=== PATIENT | female | born 1955 | race Caucasian/White ===

== ENCOUNTER 2019-06-12 11:24 | Outpatient (CLI) | payer BC, SELFPAY ==
--- NOTE | 2019-06-12 11:41 | XR_ITS ---
WS: [id number] LATERAL LUMBAR SPINE: 3 view. Lateral radiographs are performed in upright neutral, flexion and extension to the patient's toleranc e. HISTORY: Spondylolisthesis LUMBAR SPINE COMPARISON: None available. Mild rotoscoliosis of the lumbar spine. Taking into consideration the amount of rotation no instabili ty is demonstrated. There is very slight anterolisthesis of L4 but no instability. Mild disc througho ut the lumbar spine. Moderate facet joint arthritis from L3 to S1. XR/XR lumbar spine f/e only [id number] IMPRESSION: No lumbar spine instability. Advanced degenerative facet disease and disc disease throughout the lumbar spin e.
== END 2019-06-12 11:25 | disposition home or self-care (01) ==
LOC: RADWPI 11:31
PROVIDERS: Family Provider Family Medicine; PCP Family Medicine; Visit Provider Nurse Practitioner
DX: M43.16 Spondylolisthesis, lumbar region (principal); M51.36 Other intervertebral disc degeneration, lumbar region
CPT/HCPCS: 72120

== ENCOUNTER → 2020-06-30 09:00 | Outpatient (BNVA) | payer BC, MEDICARE, SELFPAY | PROVIDERS: Family Provider Family Medicine; PCP Family Medicine; Visit Provider Internal Medicine Rheumatology | DX: M15.9 Polyosteoarthritis, unspecified (principal); Z79.899 Other long term (current) drug therapy; R53.83 Other fatigue; Z94.84 Stem cells transplant status | CPT/HCPCS: 99204 ==

== ENCOUNTER 2020-06-30 12:29 | Outpatient (CLI) | payer MEDICARE, BC, SELFPAY ==
--- NOTE | 2020-06-30 12:39 | XR_ITS ---
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 There are advanced degenerative changes in the IP joints with defor mity of the second through the fifth fingers. Minimal degenerative change in the MP joints. Moderate degenerative change at the CMC joint of the thumb. No soft tissue foreign bodies. XR/XR hand RT min 3V* [id number] IMPRESSION: 1. Moderately severe degenerative changes of the hand as noted above. 2. No fracture noted
--- NOTE | 2020-06-30 12:39 | XR_ITS ---
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 Marked degenerative change at the first MP joint with large margina l osteophytes at the base of the proximal phalanx of the great toe. Txob-iz-eaqlpxiv degenerative michelle nges in the midfoot joints. Small plantar heel spur. XR/XR foot LT min 3V* [id number] IMPRESSION: 1. Degenerative changes as noted above. 2. No fracture or dislocation.
--- NOTE | 2020-06-30 12:39 | XR_ITS ---
WS: [id number] Exam: XR foot RT min 3V* [id number] Date/Time of Exam: 06/30/2020 12:41 PM Reason For Exam: Z79.899 - Other emt intermediate (current) drug therapy No fracture or dislocation. Advanced DJD at the first MP joint. Mild DJD in the midfoot joints. No so ft tissue foreign bodies. Plantar heel spur. XR/XR foot RT min 3V* [id number] IMPRESSION: 1. No fracture or dislocation. 2. Degenerative changes as noted above.
--- NOTE | 2020-06-30 12:39 | XR_ITS ---
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 Moderately advanced degenerative changes involving the IP joints an d MP joints of the thumb. Marked degenerative change at the CMC joint of the thumb. Deformity and fus iform soft tissue swelling the third finger. No soft tissue foreign bodies are seen. XR/XR hand LT min 3V* [id number] IMPRESSION: 1. Moderately advanced degenerative changes as noted above. 2. No fracture or dislocation.
[2020-06-30 13:47] LABS: C Reactive Protein 0.4 mg/L (0.0-4.9)
[2020-06-30 14:38] LABS: Erythrocyte Sedimentation Rate 17 mm/hr (0-15)
[2020-06-30 15:15] LABS: Free T4 Free Thyroxine 1.18 ng/dL (0.82-1.77)
[2020-07-01 14:48] LABS: Cyclic Citrullinated Peptide <16 UNITS
== END 2020-06-30 12:30 | disposition home or self-care (01) ==
PROVIDERS: PCP Family Medicine; Visit Provider Internal Medicine Rheumatology
DX: M19.90 Unspecified osteoarthritis, unspecified site (principal); Z79.899 Other long term (current) drug therapy
CPT/HCPCS: 36415; 73130; 73630; 84439; 85651; 86140; 86431

== ENCOUNTER → 2020-07-29 14:33 | Outpatient (BNVA) | payer BC, MEDICARE, SELFPAY | PROVIDERS: PCP Family Medicine; Visit Provider Internal Medicine Rheumatology | DX: M19.041 Primary osteoarthritis, right hand (principal); M19.042 Primary osteoarthritis, left hand; Z94.84 Stem cells transplant status; R53.83 Other fatigue | CPT/HCPCS: 99214 ==

== ENCOUNTER 2021-03-17 09:02 | Outpatient (CLI) | payer MEDICARE, BC, SELFPAY ==
--- NOTE | 2021-03-17 09:16 | MM_ITS ---
WS: [id number] BILATERAL SCREENING DIGITAL MAMMOGRAM WITH CAD HISTORY: SCREENING COMPARISON: 03/01/2018, 09/10/2015, 08/16/2012 Bilateral CC and MLO views submitted. Computer aided detection analyzed. Breast composition: There are scattered areas of fibroglandular density. No suspicious masses, microc alcifications or architectural distortion. Very mild asymmetry posterior to the LEFT nipple has been present on prior studies. MM/[place] [id number] IMPRESSION: BI-RADS: 2-Benign FOLLOW UP: 1 Year Follow-up
== END 2021-03-17 09:03 | disposition home or self-care (01) ==
PROVIDERS: PCP Family Medicine; Visit Provider Family Medicine
DX: Z12.31 Encounter for screening mammogram for malignant neoplasm of breast (principal)
CPT/HCPCS: 77067

== ENCOUNTER 2021-07-24 09:05 | Outpatient (CLI) | payer MEDICARE, BC, SELFPAY ==
--- NOTE | 2021-07-24 09:32 | MR_ITS ---
WS: [id number] MRI LUMBAR SPINE NONCONTRAST HISTORY: Chronic low back pain down RIGHT leg. COMPARISON: 06/14/2018 TECHNIQUE: Sagittal and axial multisequence imaging is submitted. Mild RIGHT curvature lumbar spine when increase in the thoracic kyphosis. Postsurgical hardware in th e cervical spine. Mild disc space narrowing and desiccation throughout the lumbar spine. Small amount of marrow edema i n the adjacent endplates of L4-5 and S1. No fracture. L3 and L4 anterolisthesis by 3 mm. Conus terminates normally at L1. Mild foraminal narrowing on the RIGHT at T11-12 due to osteophyte and facet disease. L1-L2: Moderate annular disc bulge and osteophytic ridging. Marked ligamentum flavum hypertrophy, LEF T greater than RIGHT encroaching into the thecal sac. Mild central with mvej-ul-chkigcaz subarticular and foraminal stenosis. Mild progression since the prior study. L2-L3: Moderate osteophytic ridging and annular disc bulging with ligamentum flavum and facet arthrit is. Mild central and foraminal stenosis. Moderate LEFT subarticular recess stenosis and mild on the R IGHT. Findings have progressed since the prior study. Asymmetric facet joint arthritis, LEFT greater than RIGHT. L3-L4: Moderate diffuse annular disc bulging and osteophytic ridging. Marked ligamentum flavum hypert rophy and facet arthritis encroaching into the thecal sac and subarticular recesses. Moderate central and bilateral subarticular recess stenosis and mild foraminal stenosis. L4-L5: Marked annular disc bulging and osteophytic ridging. Marked ligamentum flavum arthritis and fa cet arthritis. Moderate central, bilateral subarticular recess and foraminal stenosis. Stenosis due t o combination of facet disease, osteophytes and disc disease. Progression since the prior study. L5-S1: Diffuse asymmetric disc bulging greatest to the RIGHT. RIGHT foraminal and RIGHT paracentral d isc protrusions. There is a small disc abutting the traversing RIGHT S1 nerve root. This is a new dis c protrusion. Previously described central disc protrusion is smaller. Moderate bilateral foraminal s tenosis. Marked ligamentum flavum and facet arthritis. Paravertebral soft tissues are normal MR/MR lumbar spine wo con* [id number] IMPRESSION: 1. Multilevel moderate facet joint arthritis and areas of stenosis with progre ssion since 06/14/2018. 2. Mild central with mild to moderate subarticular and foraminal stenosis at L 1-2. 3. Moderate LEFT subarticular recess stenosis at L2-3. Mild central and forami nal stenosis and RIGHT subarticular recess stenosis at L2-3. 4. Mild central and bilateral subarticular recess and mild foraminal stenosis at L3-4. 5. Moderate central, bilateral subarticular recess and foraminal stenosis at L 4-5. 6. Small RIGHT foraminal and RIGHT paracentral disc protrusions at L5-S1. Disc protrusion does abut the RIGHT S1 nerve root. 7. Moderate bilateral foraminal stenosis at L5-S1.
== END 2021-07-24 09:06 | disposition home or self-care (01) ==
LOC: RAD 09:07
PROVIDERS: PCP Family Medicine; Visit Provider Family Medicine
DX: M48.07 Spinal stenosis, lumbosacral region (principal); M54.9 Dorsalgia, unspecified; M79.661 Pain in right lower leg
CPT/HCPCS: 72148

== ENCOUNTER → 2021-07-29 16:35 | Outpatient (BNVA) | payer MEDICARE, BC, SELFPAY | PROVIDERS: PCP Family Medicine; Visit Provider Nurse Practitioner Family | DX: R07.9 Chest pain, unspecified (principal); R11.0 Nausea | CPT/HCPCS: 80053; 84484 ==

== ENCOUNTER → 2021-08-03 13:59 | Outpatient (BNVA) | payer MEDICARE, BC, SELFPAY | PROVIDERS: PCP Family Medicine; Visit Provider Orthopaedic Surgery | DX: M54.50 Low back pain, unspecified (principal) | CPT/HCPCS: 72110; 99204 ==

== ENCOUNTER 2021-08-19 07:22 | Outpatient (RCR) | payer MEDICARE, BC, SELFPAY | END 2021-09-05 23:59 | disposition home or self-care (01) | LOC: SPT 07:22 | PROVIDERS: PCP Family Medicine; Referring Provider Orthopaedic Surgery; Visit Provider Orthopaedic Surgery | DX: M54.50 Low back pain, unspecified (principal) | CPT/HCPCS: 97110; 97161 ==

== ENCOUNTER → 2021-08-30 09:12 | Outpatient (BNVA) | payer MEDICARE, BC, SELFPAY | PROVIDERS: PCP Family Medicine; Visit Provider Anesthesiology Pain Medicine | DX: M51.16 Intervertebral disc disorders with radiculopathy, lumbar region (principal); M47.816 Spondylosis without myelopathy or radiculopathy, lumbar region; M15.9 Polyosteoarthritis, unspecified | CPT/HCPCS: 99205 ==

== ENCOUNTER 2021-09-06 06:00 | Outpatient (RCR) | payer MEDICARE, BC, SELFPAY | END 2021-09-21 13:45 | disposition home or self-care (01) | LOC: SPT 06:00 | PROVIDERS: PCP Family Medicine; Referring Provider Orthopaedic Surgery; Visit Provider Orthopaedic Surgery | DX: M54.9 Dorsalgia, unspecified (principal) | CPT/HCPCS: 97110 ==

== ENCOUNTER → 2021-09-27 13:36 | Outpatient (BNVA) | payer MEDICARE, BC, SELFPAY | PROVIDERS: PCP Family Medicine; Visit Provider Anesthesiology Pain Medicine | DX: M54.16 Radiculopathy, lumbar region (principal) | CPT/HCPCS: 64483; 64484; J1100; J3490 ==

== ENCOUNTER → 2021-09-28 14:15 | Outpatient (BNVA) | payer MEDICARE, BC, SELFPAY | PROVIDERS: PCP Family Medicine; Visit Provider Internal Medicine | DX: R07.9 Chest pain, unspecified (principal); I10 Essential (primary) hypertension; E78.00 Pure hypercholesterolemia, unspecified | CPT/HCPCS: 99204 ==

== ENCOUNTER 2021-10-29 12:52 | Outpatient (CLI) | payer MEDICARE, BC, SELFPAY ==
--- NOTE | 2021-10-29 13:00 | USCV_ITS ---
Andre Morena Age: 66 Gender: F : 1955 Exam Date: 10/29/2021 13:05 Ordering Phys: Tim Shahid M.D ([email or web address]) Technologist: Joleen Pereira [place] [facility] [place]: dyspnea BP: 165 / 93 HR: 86 Rhythm: Sinus Technical Quality: Adequate MEASUREMENTS (Male / Female) Normal Values 2D ECHO LV Diastolic Diameter PLAX 3.7 cm 4.2 - 5.9 / 3.9 - 5.3 cm LV Systolic Diameter PLAX 2.9 cm IVS Diastolic Thickness 1.6 cm 0.6 - 1.0 / 0.6 - 0.9 cm IVS Systolic Thickness 1.5 cm LVPW Diastolic Thickness 1.1 cm 0.6 - 1.0 / 0.6 - 0.9 cm LVPW Systolic Thickness 1.4 cm LVOT Diameter 2.0 cm LV Ejection Fraction 2D Teich 46.5 % LV Ejection Fraction MOD 2C 70.1 % LV Ejection Fraction 2C AL 71.0 % LA Diameter 2.1 cm LA Width 2.9 cm LA Height 3.6 cm RA Width 2.8 cm RA Height 4.9 cm Aorta at Sinotubular Diameter 3.1 cm IVC Diameter 1.7 cm M-MODE MV E Point Septal Separation 0.3 cm DOPPLER AV Peak Velocity 104.0 cm/s LVOT Peak Velocity 82.0 cm/s AV Area Cont Eq vti 2.8 cm squared AV Area Cont Eq pk 2.5 cm squared MV Peak Velocity 83.0 cm/s MV Area PHT 5.1 cm squared Mitral E to A Ratio 0.8 MV E' Velocity 34.0 cm/s Mitral E to MV E' Ratio 7.7 Mitral E to LV E' Lateral Ratio 7.1 Mitral E to LV E' Septal Ratio 8.3 TR Peak Velocity 112.7 cm/s TR Peak Gradient 5.1 mmHg Right Atrial Pressure 3.0 mmHg Pulmonary Artery Systolic Pressu 8.1 mmHg PV Peak Velocity 90.0 cm/s RV Acceleration Time 0.1 s RV Ejection Time 0.2 s RV AcT/ET 0.6 FINDINGS Left Ventricle Left ventricle is normal in size. LV systolic function is normal with EF of 55 to 60%. No regional wall motion abnormalities are seen. Grade 1 diastolic dysfunction is seen. Right Ventricle The right ventricle is normal in size and function. Right Atrium Normal in size Left Atrium Normal in size Mitral Valve Structurally normal mitral valve without significant stenosis or prolapse. There is trace mitral regurgitation. Aortic Valve Structurally normal aortic valve without significant sclerosis or stenosis. There is no aortic regurgitation. Tricuspid Valve Structurally normal tricuspid valve without significant stenosis. Trace tricuspid regurgitation. Insufficient TR jet to calculate RVSP Pulmonic Valve Not well-visualized Pericardium Normal pericardium without effusion. Aorta Normal ascending aorta dimension. IVC The inferior vena cava appears normal. CONCLUSIONS LV systolic function is normal with EF of 55 to 60%. Grade 1 diastolic dysfunction Trace mitral regurgitation Trace tricuspid regurgitation No comparison studies are available Tim Shahid MD (Electronically Signed) Final Date: 10 November 2021 13:01 S
== END 2021-10-29 12:53 | disposition home or self-care (01) ==
LOC: RAD 12:53
PROVIDERS: PCP Family Medicine; Visit Provider Internal Medicine
DX: I08.1 Rheumatic disorders of both mitral and tricuspid valves (principal); R06.00 Dyspnea, unspecified
CPT/HCPCS: 93306

== ENCOUNTER 2021-11-16 06:54 | Outpatient (CLI) | payer MEDICARE, BC, SELFPAY ==
--- NOTE | 2021-11-16 | ECG_ITS ---
[facility] Test Date: 2021-11-16 Pat Name: Morena Powell Department: Room: Gender: Female Placement Interviewer: : 1955 Requested By: Tim Shahid Order Number: [id number] Johnna MD: Tim Shahid M.D. Interpretive Statements NAME OF STUDY: EXERCISE SESTAMIBI STRESS TEST INDICATION: [Chest Pain] EXERCISE DATA: The patient was exercised by Neto protocol. Baseline heart rate was 82 beats per minute. Baseline blood pressure was 138/83 millimeters of mercury. Target heart rate was 133 beats per minute. Maximum heart rate achieved was 137, which was 103% of the target heart rate. Maximum blood pressure was 177/76 millimeters of mercury. Total exercise time was 8 minutes and 30 seconds. Maximum METs achieved was 10.2. The reason for ending the test was completion of the protocol. The patient complained of shortness of breath during the stress test, which then resolved at the end of the test. ELECTROCARDIOGRAM: BASELINE: Showed sinus rhythm, normal axis, no significant ST-T changes at the baseline noted. [] EXERCISE: At the peak exercise level, [] No significant ST-T changes suggestive of ischemia noted. [] RECOVERY: During the recovery period, heart rate dropped appropriately. No significant ST-T changes in the recovery suggestive of ischemia noted. [] CONCLUSION: 1. Exercise capacity good. 2. Heart rate response was appropriate. 3. Blood pressure response was appropriate. 4. Symptoms not suggestive of ischemia. 5. Electrocardiogram portion of the stress test was not suggestive of ischemia. 6. Nuclear scan will be documented separately. Electronically Signed On 11-17-2021 10:32:22 CDT by Tim Shahid M.D. [id number]
[2021-11-16 07:03] VITALS: BMI 27.8
--- NOTE | 2021-11-16 07:04 | NMCV_ITS ---
NM thao perf SPECT r/s* [id number] Morena Powell Age: 66 Gender: F : 1955 Exam Date: 11/16/2021 08:09 Ordering Phys: Tim Shahid M.D ([email or web address]) Technologist: MILA Villalobos Exam Location: [facility] Indications: CHEST PAIN STRESS TEST Please see separate stress test report in [facility] for full findings IMAGE PROTOCOL Rest/Stress 1 Exercise Day Radiopharmaceutical Dose (mCi) Administration Site Administered by Rest: Tc-99m 10.9 IV MILA Varner Sestamibi Stress:Tc-99m 32.8 IV MILA Varner Sestamiphan Rest: 16-Nov-2021 60 Discovery 630 Stress: 16-Nov-2021 30 Discovery 630 Radiopharmaceutical was injected at 85 % maximum heart rate. Images obtained in supine and prone position. SPECT RESULTS Technical Quality: Excellent Raw Data Analysis: Normal Image Corrections: No attenuation or motion correction applied Summed Stress Score: 0 Summed Rest Score: 0 Summed Difference Score: 0 PERFUSION FINDINGS SPECT images demonstrate homogeneous tracer distribution throughout the myocardium. FUNCTIONAL RESULTS (calculated via Gated SPECT) Stress Image LV EF (%): 69 Stress EDV (mL):62 TID: 0.84 Stress ESV (mL):19 FUNCTIONAL FINDINGS: There is normal left ventricular systolic function. IMPRESSIONS 1. Normal myocardial perfusion imaging with no evidence of ischemia 2. LV systolic function is normal Tim Shahid MD (Electronically Signed) Final Date: 16 November 2021 16:53 S
[2021-11-16 09:06] VITALS: BP 133/75; PULSE 83
== END 2021-11-16 06:55 | disposition home or self-care (01) ==
LOC: CDL 06:57
PROVIDERS: PCP Family Medicine; Visit Provider Internal Medicine
DX: R07.9 Chest pain, unspecified (principal)
CPT/HCPCS: 78452; 93017; A9500

== ENCOUNTER → 2021-12-28 12:42 | Outpatient (BNVA) | payer MEDICARE, BC, SELFPAY | PROVIDERS: PCP Family Medicine; Visit Provider Internal Medicine | DX: I11.9 Hypertensive heart disease without heart failure (principal); E78.00 Pure hypercholesterolemia, unspecified | CPT/HCPCS: 99213 ==

== ENCOUNTER → 2022-03-31 10:08 | Outpatient (BNVA) | payer MEDICARE, OTHER, SELFPAY | PROVIDERS: PCP Family Medicine; Visit Provider Family Medicine | DX: I10 Essential (primary) hypertension (principal) | CPT/HCPCS: 80048 ==

== ENCOUNTER 2022-04-28 14:54 | Outpatient (CLI) | payer MEDICARE, OTHER, SELFPAY ==
--- NOTE | 2022-04-28 15:14 | MM_ITS ---
WS: [id number] SCREENING DIGITAL TOMOSYNTHESIS MAMMOGRAM WITH CAD HISTORY: SCREEN COMPARISON: 03/17/2021, 03/01/2018 Bilateral CC and MLO with tomosynthesis views submitted. Synthetic mammography reviewed. Computer aid ed detection analyzed. Breast composition: There are scattered areas of fibroglandular density. No suspicious masses, microc alcifications or architectural distortion. MM/[place] [id number] IMPRESSION: BI-RADS: 1-Negative FOLLOW UP: 1 Year Follow-up
== END 2022-04-28 14:55 | disposition home or self-care (01) ==
LOC: RAD 14:56
PROVIDERS: PCP Family Medicine; Visit Provider Family Medicine
DX: Z12.31 Encounter for screening mammogram for malignant neoplasm of breast (principal)
CPT/HCPCS: 77063; 77067

== ENCOUNTER 2022-08-25 12:01 | Outpatient (CLI) | payer MEDICARE, OTHER, SELFPAY ==
[2022-08-25 13:13] LABS: INR 0.98 (0.8-1.2)
[2022-08-25 13:15] LABS: Fibrinogen 296 mg/dL (174-498)
[2022-08-25 13:21] LABS: Homocysteine 10.68
[2022-08-26 19:25] LABS: PTT-LA-Screen 33 sec (< OR = 40)
[2022-08-28 05:45] LABS: CARDIOLIPIN AB (IGA) <2.0 APL-U/mL; CARDIOLIPIN AB (IGG) <2.0 GPL-U/mL; CARDIOLIPIN AB (IGM) <2.0 MPL-U/mL
[2022-08-29 22:35] LABS: Factor 5 Leiden Mutation NEGATIVE
[2022-08-29 23:35] LABS: PROTEIN S, ACTIVITY 84 % normal (60-140)
[2022-08-30 06:20] LABS: PROTEIN C, ACTIVITY 149 % normal (70-180)
[2022-08-30 06:28] LABS: Antithrombin III Activity 120 % normal (80-135)
[2022-08-30 21:19] LABS: Factor VIII Activity Clotting 128 % normal (50-180)
== END 2022-08-25 12:02 | disposition home or self-care (01) ==
LOC: LAB 12:06
PROVIDERS: PCP Family Medicine; Visit Provider Thoracic Surgery (Cardiothoracic Vascular Surgery)
DX: Z01.812 Encounter for preprocedural laboratory examination (principal); Z01.89 Encounter for other specified special examinations
CPT/HCPCS: 36415; 81240; 81241; 83090; 84311; 85240; 85300; 85303; 85306; 85307; 85384; 85420; 85610; 85613; 85730; 86147

== ENCOUNTER → 2022-11-29 12:25 | Outpatient (BNVA) | payer MEDICARE, OTHER, SELFPAY | PROVIDERS: PCP Family Medicine; Visit Provider Clinical Nurse Specialist Adult Health | DX: R39.15 Urgency of urination (principal); B02.9 Zoster without complications | CPT/HCPCS: 81000 ==

== ENCOUNTER → 2023-02-28 08:16 | Outpatient (BNVA) | payer MEDICARE, SELFPAY | PROVIDERS: PCP Family Medicine; Visit Provider Family Medicine | DX: Z13.6 Encounter for screening for cardiovascular disorders (principal); K21.9 Gastro-esophageal reflux disease without esophagitis; R10.13 Epigastric pain; R63.1 Polydipsia | CPT/HCPCS: 80053; 80061; 83036; 85025 ==

== ENCOUNTER 2023-03-08 06:35 | Outpatient (CLI) | payer MEDICARE, SELFPAY | END 2023-03-08 06:36 | LOC: RAD 05-29 11:49 | PROVIDERS: PCP Family Medicine; Visit Provider Family Medicine | DX: K21.9 Gastro-esophageal reflux disease without esophagitis (principal); K82.4 Cholesterolosis of gallbladder; K76.89 Other specified diseases of liver; R63.1 Polydipsia; R10.13 Epigastric pain | CPT/HCPCS: 76705 ==

== ENCOUNTER 2023-03-08 06:35 | Outpatient (CLI) | payer MEDICARE, SELFPAY ==
--- NOTE | 2023-03-08 06:45 | US_ITS ---
WS: [id number] RIGHT UPPER QUADRANT ULTRASOUND HISTORY: K21.9 - Gastro-esophageal reflux disease without esophagitis COMPARISON: None available. Liver: 15.5 cm in length. Normal size liver. Hepatic cyst RIGHT lobe 1.6 x 1.7 x 1.5 cm. No solid mas s. No bile duct dilatation. Portal Vein: Normal hepatopetal flow with monophasic waveform. Gallbladder: Nonshadowing nonmobile focus within the gallbladder measures 6 x 6 x 7 mm consistent wit h a small polyp. No increased vascularity. CBD: 0.4 cm Pancreas: Normal size and echogenicity. Right kidney: 10.5 cm in length. Normal size and echogenicity. No hydronephrosis or mass. Aorta and IVC: Unremarkable abdominal aorta and IVC. No ascites. IMPRESSION: 1. No cholelithiasis. 2. Hyperplastic gallbladder polyp, 6 x 6 x 7 mm. 3. Hepatic cyst RIGHT lobe, 1.6 x 1.7 x 1.5 cm.
== END 2023-03-08 06:36 | disposition home or self-care (01) ==
LOC: RAD 06:36
PROVIDERS: PCP Family Medicine; Visit Provider Family Medicine
DX: K21.9 Gastro-esophageal reflux disease without esophagitis (principal); K82.4 Cholesterolosis of gallbladder; K76.89 Other specified diseases of liver; R63.1 Polydipsia; R10.13 Epigastric pain
CPT/HCPCS: 76705; 80053; 80061; 83036; 85025

== ENCOUNTER 2023-05-31 11:14 | Outpatient (CLI) | payer MEDICARE, SELFPAY ==
--- NOTE | 2023-05-31 11:32 | MM_ITS ---
WS: [id number] BILATERAL SCREENING DIGITAL TOMOSYNTHESIS MAMMOGRAM WITH CAD HISTORY: SCREENING COMPARISON: 04/28/2022, 03/17/2021 and 09/10/2015 Bilateral CC and MLO views with tomosynthesis and synthetic mammography submitted. Computer aided det ection analyzed. Breast composition: There are scattered areas of fibroglandular density. No suspicious masses, microc alcifications or architectural distortion. Asymmetry in the RIGHT subareolar region is similar to 201 6. No suspicious masses or calcifications. IMPRESSION: MM/[place] [id number] BI-RADS: 2-Benign FOLLOW UP: 1 Year Follow-up
== END 2023-05-31 11:15 | disposition home or self-care (01) ==
LOC: RAD 11:15
PROVIDERS: PCP Family Medicine; Visit Provider Family Medicine
DX: Z12.31 Encounter for screening mammogram for malignant neoplasm of breast (principal)
CPT/HCPCS: 77063; 77067

== ENCOUNTER 2024-06-14 08:20 | Outpatient (CLI) | payer MEDICARE, SELFPAY ==
--- NOTE | 2024-06-14 08:29 | MM_ITS ---
WS: [id number] BILATERAL SCREENING DIGITAL TOMOSYNTHESIS MAMMOGRAM WITH CAD HISTORY: SCREENING COMPARISON: 05/31/2023, 04/28/2022 and 08/16/2012 Bilateral CC and MLO views with tomosynthesis and synthetic mammography submitted. Computer aided detection analyzed. Breast composition: There are scattered areas of fibroglandular density. No suspicious masses, microcalcifications or architectural distortion. Benign coarse calcification LEFT breast 9:00. MM/MM scr BI tomosynthesis [id number] IMPRESSION: BI-RADS: 2 - Benign. FOLLOW UP: 1 Year Follow-up
[2024-06-14 09:16] LABS: Basophils # 0.1 10^3/uL (0.0-0.1); Basophils % 0.8 %; Eosinophils # 0.1 10^3/uL (0.0-0.8); Eosinophils % 1.2 %; Lymphocytes # 2.2 10^3/uL (0.8-4.8); Lymphocytes % 29.6 %; Mean Corpuscular HGB Conc 32.6 g/dL (30-55); Mean Corpuscular Hemoglobin 29.1 pg (27-33); Mean Corpuscular Volume 89.2 fl (85-98); Mean Platelet Volume 8.6 fL (7.4-10.4); Monocytes # 0.7 10^3/uL (0.2-0.9); Monocytes % 9.7 %; Neutrophils # 4.37 10^3/uL (1.8-7.7); Neutrophils % 58.3 %; Nucleated Red Blood Cells % 0 %; Platelet Count 327 10^3/cmm (157-399); Red Blood Count 4.26 10^6/uL (3.85-5.65); Red Cell Distribution Width 14.4 % (12.1-15.1)
[2024-06-14 10:06] LABS: 25 Hydroxy Vitamin D 60 ng/mL (30-100); Alanine Aminotransferase 25 U/L (0-33); Albumin Level 4.1 g/dL (3.5-5.2); Alkaline Phosphatase 80 U/L (35-105); Anion Gap 17.3 (5-19); Aspartate Amino Transferase 20 U/L (0-32); Blood Urea Nitrogen 10 mg/dL (8-23); Carbon Dioxide 21 mmol/L (22-29); Chloride 100 mmol/L (98-107); Chol HDL Ratio 2.76 mg/dL (0.0-4.40); Cholesterol 116 mg/dL (0-200); Globulin 3.3 g/dL (1.3-4.6); Glomerular Filtration Rate 71.5 mL/min (90-130); Glucose 117 mg/dL (65-115); HDL Cholesterol 42 mg/dL (60-100); LDL Cholesterol Calculated 29 mg/dL (50-129); Osmolality Calculated 278 mOsm/kg (285-295); Potassium 4.3 mmol/L (3.5-5.1); Sodium 134 mmol/L (136-145); Thyroid Stimulating Hormone 1.12 uIU/mL (0.27-4.20); Total Bilirubin 0.6 mg/dL (0.15-1.2); Total Protein 7.4 g/dL (6.6-8.7); Triglycerides 225 mg/dL (0-150); VLDL Cholestrol Calculation 45 mg/dL (0-30); Vitamin B12 1016 pg/mL (232-1245)
== END 2024-06-14 08:21 | disposition home or self-care (01) ==
PROVIDERS: PCP Family Medicine; Visit Provider Family Medicine
DX: Z12.31 Encounter for screening mammogram for malignant neoplasm of breast (principal); I10 Essential (primary) hypertension; E78.00 Pure hypercholesterolemia, unspecified; M15.9 Polyosteoarthritis, unspecified; R53.83 Other fatigue; J40 Bronchitis, not specified as acute or chronic; E03.9 Hypothyroidism, unspecified; R92.323 Mammographic fibroglandular density, bilateral breasts; R92.1 Mammographic calcification found on diagnostic imaging of breast
CPT/HCPCS: 77063; 77067; 80053; 80061; 82306; 82607; 84443; 85025

== ENCOUNTER → 2024-11-25 11:10 | Outpatient (BNVA) | payer MEDICARE, SELFPAY | PROVIDERS: PCP Family Medicine; Visit Provider Family Medicine | DX: I10 Essential (primary) hypertension (principal); E03.9 Hypothyroidism, unspecified; E78.00 Pure hypercholesterolemia, unspecified; M15.9 Polyosteoarthritis, unspecified; M51.16 Intervertebral disc disorders with radiculopathy, lumbar region | CPT/HCPCS: 80053; 80061; 82306; 84443 ==